=== PATIENT | male | born 1970 ===

== ENCOUNTER 2018-07-17 18:29 | Inpatient (IN) | payer MEDICAID ==
[2018-07-17] MEDS ORDERED: Albuterol-Ipratrop 3 mg / 0.5 (3 ml) UD IH STA ×3 (20:13→22:14)
[2018-07-17] MEDS ORDERED: Sodium Chloride 0.9% 1,000 ML IV STA (20:13)
--- NOTE | 2018-07-17 20:17 | ED PDOC ---
HPI: Skin/Bite Injury Time Seen by Provider: 07/17/18 19:34 Chief Complaint (Nursing): Shortness Of Breath Chief Complaint (Provider): boil History Per: Patient History/Exam Limitations: no limitations Onset/Duration Of Symptoms: Days (4) Current Symptoms Are (Timing): Still Present Additional Complaint(s): 48 y/o male history of HIV (on anti-virals, viral load undetectable, CD4 count 450) presents for evaluation of boil to lower abdomen x 4 days. Patient states symptoms started as small "pimple" which he popped and states since then its been draining and now with redness around area. Patient also reports shortness of breath x 4 days, with dry cough and congestion; no relief provided with his inhaler. Denies fever, nausea/vomiting, chest pain, palpitations, leg pain/swelling. Past Medical History Reviewed: Historical Data, Nursing Documentation, Vital Signs Vital Signs: Last Vital Signs Temp 98.1 F 07/17/18 18:34 Pulse 106 H 07/17/18 18:34 Resp 16 07/17/18 18:34 BP 133/86 07/17/18 18:34 Pulse Ox 96 07/17/18 18:34 - Medical History PMH: HIV - Surgical History Other surgeries: right wrist/forearm surgery - Family History Family History: States: No Known Family Hx - Home Medications Home Medications: Ambulatory Orders Medication Instructions Recorded Bictegrav/Emtricit/Tenofov Ala 1 tab PO DAILY 07/17/18 [Biktarvy 50-200-25 mg Tablet] - Allergies Allergies/Adverse Reactions: Allergies Allergy/AdvReac Type Severity Reaction Status Date / Time Penicillins Allergy RASH Verified 07/17/18 18:43 Review of Systems ROS Statement: Except As Marked, All Systems Reviewed And Found Negative Respiratory: Positive for: Shortness of Breath Skin: Positive for: Lesions (abdomen) Physical Exam - Reviewed Nursing Documentation Reviewed: Yes Vital Signs Reviewed: Yes - Physical Exam Appears: Positive for: Well, Non-toxic, No Acute Distress Head Exam: Positive for: ATRAUMATIC, NORMAL INSPECTION, NORMOCEPHALIC Skin: Positive for: Normal Color Eye Exam: Positive for: Normal appearance ENT: Positive for: Normal ENT Inspection Cardiovascular/Chest: Positive for: Regular Rate, Rhythm Respiratory: Positive for: Decreased Breath Sounds. Negative for: Accessory Muscle Use, Respiratory Distress Gastrointestinal/Abdominal: Positive for: Normal Exam, Bowel Sounds, Soft, Other (open draining lesion lower abdomen with surrounding induration and erythema extending up to abdomen, [id number]) Back: Positive for: Normal Inspection Extremity: Positive for: Normal ROM Neurological/Psych: Positive for: Awake, Alert, Oriented (x3) - Laboratory Results Result Diagrams: 07/17/18 21:06 07/17/18 21:06 - ECG ECG: Positive for: Viewed By Me (reviewed by ED attending) ECG Rhythm: Positive for: Sinus Rhythm O2 Sat by Pulse Oximetry: 96 - Radiology X-Ray: Viewed By Me X-Ray Interpretation: No Acute Disease - Progress ED Course And Treament: -cbc -cmp -lactic acid -blood culture -ekg -cxr -IV NS bolus -IV toradol -duoneb -wound culture IV Vanco dose ordered Case discussed with Dr. Longo for admission; recommends ID consult Disposition - Clinical Impression Clinical Impression: Abdominal wall cellulitis, Bronchospasm - Patient ED Disposition Is Patient to be Admitted: Yes - Disposition Disposition Time: 22:15 Condition: FAIR
[2018-07-17] MEDS ORDERED: Albuterol-Ipratrop 3 mg / 0.5 (3 ml) UD ONE ×2 (20:44→22:34)
[2018-07-17 21:45] LABS: BASO # 0.1 K/uL (0.0-0.2); BASO % 0.6 % (0.0-2.0); EOS # 0.2 K/uL (0.0-0.7); EOS % 1.7 % (0.0-4.0); HEMOGLOBIN 14.1 g/dL (12.0-18.0); LYMPH % 25.1 % (20.0-40.0); MEAN CELL VOLUME 85.6 fl (80.0-94.0); MEAN CORPUSCULAR HEMOGLOBIN 27.8 pg (27.0-31.0); MEAN CORPUSCULAR HGB CONC 32.5 g/dL (33.0-37.0); MEAN PLATELET VOLUME 7.3 fl (7.2-11.7); MONO # 1.4 K/uL (0.0-0.8); MONO % 11.3 % (0.0-10.0); NEUT # 7.4 K/uL (1.8-7.0); NEUT % 61.3 % (50.0-75.0); NRBC % 0.4 % (0.0-0.0); RBC 5.09 Mil/uL (4.40-5.90); RED CELL DISTRIBUTION WIDTH 15.4 % (11.5-14.5)
[2018-07-17 21:57] LABS: ALB/GLOB RATIO 1.1 (1.0-2.1); ALT/SGPT 45 U/L (21-72); AST/SGOT 35 U/L (17-59); BLOOD UREA NITROGEN 10 mg/dl (9-20); CALCIUM 9.2 mg/dL (8.4-10.2); GFR NON-AFRICAN AMERICAN 50
[2018-07-17] MEDS ORDERED: Vancomycin 1 g Inj ONE (22:34)
[2018-07-18] MEDS ORDERED: Piperacillin/Tazobact 3.375 GM in Sodium Chloride 0.9% 100 ML IVPB SCH (04:00)
[2018-07-18 07:29] LABS: HEMOGLOBIN 15.1 g/dL (12.0-18.0); MEAN CELL VOLUME 85.7 fl (80.0-94.0); MEAN CORPUSCULAR HEMOGLOBIN 27.9 pg (27.0-31.0); MEAN CORPUSCULAR HGB CONC 32.5 g/dL (33.0-37.0); RBC 5.42 Mil/uL (4.40-5.90); RED CELL DISTRIBUTION WIDTH 15.2 % (11.5-14.5); WHITE BLOOD COUNT 13.1 K/uL (4.8-10.8)
[2018-07-18 07:43] LABS: ALBUMIN 4.1 g/dL (3.5-5.0); ALT/SGPT 40 U/L (21-72); AST/SGOT 25 U/L (17-59); BLOOD UREA NITROGEN 12 mg/dl (9-20); CALCIUM 9.6 mg/dL (8.4-10.2); GFR NON-AFRICAN AMERICAN > 60; HDL CHOLESTEROL 25 MG/DL (30-70)
[2018-07-18 07:51] LABS: LDL CHOLESTEROL 115 mg/dL (0-129)
--- NOTE | 2018-07-18 10:50 | RAD ---
Date of service: 07/17/2018 HISTORY: Shortness of breath COMPARISON: None TECHNIQUE: Chest PA and lateral FINDINGS: LINES AND TUBES: None. LUNG AND PLEURA: The lungs are well inflated and clear. There is mild pulmonary venous congestion. No pleural effusion or pneumothorax. HEART AND MEDIASTINUM: The heart is not enlarged. No aortic atherosclerotic calcifications present. The hilar and mediastinal contours are within normal limits. SKELETAL STRUCTURES: The bony structures are within normal limits for the patient's age. VISUALIZED UPPER ABDOMEN: Normal. OTHER FINDINGS: None. IMPRESSION: No active pulmonary disease.
--- NOTE | 2018-07-18 10:58 | CP.PCM.CON ---
History of Present Illness - History of Present Illness History of Present Illness: Infectious disease consultation Asked to see this patient at the request of Dr. Longo for cellulitis of the lower abdominal region. HPI Patient is a 48-year-old male with past medical history of HIV who is well controlled on antiretrovirals( Biktarvy) with undetectable viral load and he states his last CD4 was 450. He states he follows up with his doctor in [place]. Patient presents to hospital for evaluation of a boil that he had developed in his lower abdomen about 4 days ago and apparently he popped the boil himself and he started to have oozing of blood from it and developed some redness in the surrounding region and hence he decided to come to ER and to be further evaluated. He denies any fever or chills, denies any nausea or vomiting, denies any purulent discharge from the boil and states the only discharge has been bloody, denies any abdominal pain, denies any diarrhea, denies any dysuria, denies any cough or shortness of breath, denies any chest pain. Review of Systems - Review of Systems Review of Systems: Review of systems had a boil in lower abdomen that he popped and has been draining blood from it and surrounding redness Patient denies any headaches, denies any cough, denies any shortness of breath, denies any chest pain, denies any nausea vomiting, denies any abdominal pain, denies any diarrhea, denies any dysuria Denies any recent travel Denies any sick contacts Denies any animal contact Past Patient History - Past Medical History & Family History Past Medical History?: Yes - Past Social History Smoking Status: Light Smoker < 10 Cigarettes Daily - CARDIAC Hx Cardiac Disorders: No - PULMONARY Hx Respiratory Disorders: Yes Hx Asthma: Yes - NEUROLOGICAL Hx Neurological Disorder: No - HEENT Hx HEENT Problems: No - RENAL Hx Chronic Kidney Disease: No - ENDOCRINE/METABOLIC Hx Endocrine Disorders: No - HEMATOLOGICAL/ONCOLOGICAL Hx Blood Disorders: Yes Hx Human Immunodeficiency Virus (HIV): Yes - INTEGUMENTARY Hx Dermatological Problems: No - MUSCULOSKELETAL/RHEUMATOLOGICAL Hx Musculoskeletal Disorders: No Hx Falls: No - GASTROINTESTINAL Hx Gastrointestinal Disorders: No - GENITOURINARY/GYNECOLOGICAL Hx Genitourinary Disorders: No - PSYCHIATRIC Hx Psychophysiologic Disorder: No Hx Substance Use: No - SURGICAL HISTORY Hx Surgeries: Yes Hx Orthopedic Surgery: Yes (right wrist / arm fx) - ANESTHESIA Hx Anesthesia: Yes Hx Anesthesia Reactions: No Hx Malignant Hyperthermia: No Has any member of the family had a problem w/ anesthesia?: No Meds Allergies/Adverse Reactions: Allergies Allergy/AdvReac Type Severity Reaction Status Date / Time Penicillins Allergy RASH Verified 07/17/18 18:43 - Medications Medications: Current Medications Acetaminophen (Tylenol 325mg Tab) 650 mg PO Q4 PRN PRN Reason: Pain, Mild (1-3) Home Med (Bictegrav/Emtricit/Tenofov Ala [Biktarvy 50-200-25 Mg Tablet]) 1 tab PO DAILY JT Vancomycin HCl 1 gm/ Sodium (Chloride) 250 mls @ 166.667 mls/hr IVPB Q12H JT; Protocol Last Admin: 07/18/18 08:55 Dose: 166.667 mls/hr Ketorolac Tromethamine (Toradol) 15 mg IVP Q6 PRN PRN Reason: Pain, moderate (4-7) Ketorolac Tromethamine (Toradol) 30 mg IVP Q6 PRN PRN Reason: Pain, severe (8-10) Last Admin: 07/18/18 08:53 Dose: 30 mg Physical Exam - Constitutional Appears: No Acute Distress - Head Exam Head Exam: ATRAUMATIC - Eye Exam Eye Exam: EOMI, PERRL - ENT Exam ENT Exam: Normal Oropharynx - Neck Exam Neck exam: Positive for: Full Rom - Respiratory Exam Respiratory Exam: Clear to Auscultation Bilateral, NORMAL BREATHING PATTERN - Cardiovascular Exam Cardiovascular Exam: RRR, +S1, +S2 - GI/Abdominal Exam GI & Abdominal Exam: Normal Bowel Sounds, Soft Additional comments: ND, mid lower abdominal region with small round opening where he had the boil draing minimal blood, + surrounding erythema, no fluctuation no tenderness - Extremities Exam Extremities exam: Positive for: normal inspection - Neurological Exam Neurological exam: Alert, Oriented x3 Results - Vital Signs Recent Vital Signs: Last Vital Signs Temp 97.5 F L 07/18/18 07:36 Pulse 65 07/18/18 07:36 Resp 19 07/18/18 07:36 BP 135/80 07/18/18 07:36 Pulse Ox 95 07/18/18 07:36 - Labs Result Diagrams: 07/18/18 06:55 07/18/18 06:55 Labs: Laboratory Results - last 24 hr 07/17/18 07/17/18 07/17/18 21:06 21:06 21:06 WBC 12.0 H RBC 5.09 Hgb 14.1 Hct 43.6 MCV 85.6 MCH 27.8 MCHC 32.5 L RDW 15.4 H Plt Count 352 MPV 7.3 Neut % (Auto) 61.3 Lymph % (Auto) 25.1 [place] % (Auto) 11.3 H Eos % (Auto) 1.7 Baso % (Auto) 0.6 Neut # (Auto) 7.4 H Lymph # (Auto) 3.0 [place] # (Auto) 1.4 H Eos # (Auto) 0.2 Baso # (Auto) 0.1 Sodium 139 Potassium 4.1 Chloride 104 Carbon Dioxide 27 Anion Gap 12 BUN 10 Creatinine 1.5 Est GFR ( Amer) > 60 Est GFR (Non-Af Amer) 50 Random Glucose 102 Lactic Acid 1.2 Calcium 9.2 Total Bilirubin 0.4 AST 35 ALT 45 Alkaline Phosphatase 76 Troponin I < 0.0120 NT-Pro-B Natriuret Pep 30.0 Total Protein 7.6 Albumin 4.0 Globulin 3.5 Albumin/Globulin Ratio 1.1 Triglycerides Cholesterol LDL Cholesterol Direct HDL Cholesterol Thyroxine (T4) TSH 3rd Generation 07/18/18 07/18/18 06:55 06:55 WBC 13.1 H RBC 5.42 Hgb 15.1 Hct 46.5 MCV 85.7 MCH 27.9 MCHC 32.5 L RDW 15.2 H Plt Count 347 MPV Neut % (Auto) Lymph % (Auto) [place] % (Auto) Eos % (Auto) Baso % (Auto) Neut # (Auto) Lymph # (Auto) [place] # (Auto) Eos # (Auto) Baso # (Auto) Sodium 139 Potassium 4.3 Chloride 108 H Carbon Dioxide 21 L Anion Gap 14 BUN 12 Creatinine 1.2 Est GFR ( Amer) > 60 Est GFR (Non-Af Amer) > 60 Random Glucose 165 H Lactic Acid Calcium 9.6 Total Bilirubin 0.5 AST 25 ALT 40 Alkaline Phosphatase 82 Troponin I NT-Pro-B Natriuret Pep Total Protein 7.9 Albumin 4.1 Globulin 3.9 Albumin/Globulin Ratio 1.0 Triglycerides 95 Cholesterol 182 LDL Cholesterol Direct 115 HDL Cholesterol 25 L Thyroxine (T4) 8.68 TSH 3rd Generation 1.24 Accession No. : [id number] Patient Name / ID : GOLD BLAKE A / [id number] Exam Date : 07/17/2018 21:05:23 ( Approved ) Study Comment : Sex / Age : M / 48Y Creator : Camila Blue MD Dictator : Camila Blue MD Parachute Taper : Freelance Operator : Camila Blue MD Approver2 : Report Date : 07/18/2018 10:47:28 My Comment : Date of service: 07/17/2018 HISTORY: Shortness of breath COMPARISON: None TECHNIQUE: Chest PA and lateral FINDINGS: LINES AND TUBES: None. LUNG AND PLEURA: The lungs are well inflated and clear. There is mild pulmonary venous congestion. No pleural effusion or pneumothorax. HEART AND MEDIASTINUM: The heart is not enlarged. No aortic atherosclerotic calcifications present. The hilar and mediastinal contours are within normal limits. SKELETAL STRUCTURES: The bony structures are within normal limits for the patient's age. VISUALIZED UPPER ABDOMEN: Normal. OTHER FINDINGS: None. IMPRESSION: No active pulmonary disease. Assessment & Plan (1) Abdominal wall cellulitis Status: Acute (2) HIV (human immunodeficiency virus infection) Status: Acute - Assessment and Plan (Free Text) Assessment: Assessment and plan 48-year-old male with past medical history of HIV well-controlled who is admitted to hospital for evaluation of lower abdominal cellulitis after popping a small boil that was present there. Afebrile Minimal leukocytosis Wound culturepending Plan Advised to continue with IV vancomycin to cover for skin pathogens and treat the lower abdominal wall cellulitis. Keep Vanco trough less than 15. Follow-up wound culture results. Check blood culture x1. Advised the patient to continue his home HIV medication ( Biktarvy). All labs and imaging and chart notes were reviewed. All above discussed with patient and he agrees with above plan of care. Thank you for allowing me to take part in the care of this patient.
--- NOTE | 2018-07-18 11:16 | CARD ---
APPROVED REPORT Date of service: 07/17/2018 EKG Measurement Heart [id number] <Conclusion> Normal sinus rhythm Normal ECG
--- NOTE | 2018-07-18 14:24 | CP.PCM.HP ---
History of Present Illness - History of Present Illness History of Present Illness: CC: Abdominal boil. 48 y/o M, with Hx HIV on Biktarvy, Asthma, PNA, came to ER [facility] on 07/[facility]18 for evaluation of abdominal pain, suprapubic site 2nd to a boil that appeared in his lower abdomen x 4 days [employer] SAL[employer], and after he popped start draining oozing blood associated to surrounding redness/swelling in the area. Initially, lower abdominal wound area was described as constant, dull, severe intensity 9:10 with no relief. Worsening symptoms: c/o of SOB x 1 week with COULTER, associated to productive, cough and scant yellowish phlegms, non bloody, Pt using handheld inhalers at home with no relief. Aggravated factor: Exercise, movements. Pt denied: Fever, chills, n/v/d, abdominal pain (other than wound area), urinar y symptoms, CP, palpitations, sick contact, recent travel out of [place]. CXR: No active pulmonary disease. EKG: Normal sinus rhythm. Present on Admission - Present on Admission Any Indicators Present on Admission: No Review of Systems - Constitutional Constitutional: Other (negative) - EENT Eyes: Other (negative) Ears: Other (negative) Nose/Mouth/Throat: Other (negative) - Cardiovascular Cardiovascular: Other (negative) - Respiratory Respiratory: Cough, Dyspnea, Dyspnea on Exertion, Excessive Mucous Production, Change in Mucous Color - Gastrointestinal Gastrointestinal: Abdominal Pain (wound area) - Genitourinary Genitourinary: Other (negati) - Musculoskeletal Musculoskeletal: Other (negative) - Integumentary Integumentary: Wounds - Neurological Neurological: Other (negative) - Psychiatric Psychiatric: Other (negative) - Endocrine Endocrine: Other (negative) - Hematologic/Lymphatic Hematologic: Other (negative) Past Patient History - Past Medical History & Family History Past Medical History?: Yes Pertinent Family History: Unknown - Past Social History Smoking Status: Light Smoker < 10 Cigarettes Daily Alcohol: None Drugs: Denies Home Situation {Lives}: Alone - CARDIAC Hx Cardiac Disorders: No - PULMONARY Hx Respiratory Disorders: Yes Hx Asthma: Yes - NEUROLOGICAL Hx Neurological Disorder: No - HEENT Hx HEENT Problems: No - RENAL Hx Chronic Kidney Disease: No - ENDOCRINE/METABOLIC Hx Endocrine Disorders: No - HEMATOLOGICAL/ONCOLOGICAL Hx Blood Disorders: Yes Hx Human Immunodeficiency Virus (HIV): Yes - INTEGUMENTARY Hx Dermatological Problems: No - MUSCULOSKELETAL/RHEUMATOLOGICAL Hx Musculoskeletal Disorders: No Hx Falls: No - GASTROINTESTINAL Hx Gastrointestinal Disorders: No - GENITOURINARY/GYNECOLOGICAL Hx Genitourinary Disorders: No - PSYCHIATRIC Hx Psychophysiologic Disorder: No Hx Substance Use: No - SURGICAL HISTORY Hx Surgeries: Yes Hx Orthopedic Surgery: Yes (right wrist / arm fx) - ANESTHESIA Hx Anesthesia: Yes Hx Anesthesia Reactions: No Hx Malignant Hyperthermia: No Has any member of the family had a problem w/ anesthesia?: No Meds Allergies/Adverse Reactions: Allergies Allergy/AdvReac Type Severity Reaction Status Date / Time Penicillins Allergy RASH Verified 07/17/18 18:43 Physical Exam - Constitutional Appears: No Acute Distress - Head Exam Head Exam: NORMAL INSPECTION - Eye Exam Eye Exam: PERRL - ENT Exam ENT Exam: Normal Exam - Neck Exam Neck exam: Positive for: Normal Inspection - Respiratory Exam Respiratory Exam: Decreased Breath Sounds - Cardiovascular Exam Cardiovascular Exam: REGULAR RHYTHM - GI/Abdominal Exam GI & Abdominal Exam: Normal Bowel Sounds, Soft Additional comments: Open draining wound lower abdomen with surrounding induration and erythema around the area - Extremities Exam Extremities exam: Positive for: normal inspection - Back Exam Back exam: NORMAL INSPECTION - Neurological Exam Neurological exam: Alert, Oriented x3 Additional comments: No motor/sensory deficit. - Psychiatric Exam Psychiatric exam: Normal Mood - Skin Skin Exam: Erythema, Warm Results - Vital Signs Recent Vital Signs: Last Vital Signs Temp 97.5 F L 07/18/18 09:00 Pulse 65 07/18/18 09:00 Resp 19 07/18/18 09:00 BP 135/80 07/18/18 09:00 Pulse Ox 95 07/18/18 09:00 reviewed J.PPaz - Labs Result Diagrams: 07/19/18 06:05 07/19/18 06:05 Labs: Laboratory Results - last 24 hr 07/17/18 07/17/18 07/17/18 21:06 21:06 21:06 WBC 12.0 H RBC 5.09 Hgb 14.1 Hct 43.6 MCV 85.6 MCH 27.8 MCHC 32.5 L RDW 15.4 H Plt Count 352 MPV 7.3 Neut % (Auto) 61.3 Lymph % (Auto) 25.1 [place] % (Auto) 11.3 H Eos % (Auto) 1.7 Baso % (Auto) 0.6 Neut # (Auto) 7.4 H Lymph # (Auto) 3.0 [place] # (Auto) 1.4 H Eos # (Auto) 0.2 Baso # (Auto) 0.1 Sodium 139 Potassium 4.1 Chloride 104 Carbon Dioxide 27 Anion Gap 12 BUN 10 Creatinine 1.5 Est GFR ( Amer) > 60 Est GFR (Non-Af Amer) 50 Random Glucose 102 Lactic Acid 1.2 Calcium 9.2 Total Bilirubin 0.4 AST 35 ALT 45 Alkaline Phosphatase 76 Troponin I < 0.0120 NT-Pro-B Natriuret Pep 30.0 Total Protein 7.6 Albumin 4.0 Globulin 3.5 Albumin/Globulin Ratio 1.1 Triglycerides Cholesterol LDL Cholesterol Direct HDL Cholesterol Thyroxine (T4) TSH 3rd Generation 07/18/18 07/18/18 06:55 06:55 WBC 13.1 H RBC 5.42 Hgb 15.1 Hct 46.5 MCV 85.7 MCH 27.9 MCHC 32.5 L RDW 15.2 H Plt Count 347 MPV Neut % (Auto) Lymph % (Auto) [place] % (Auto) Eos % (Auto) Baso % (Auto) Neut # (Auto) Lymph # (Auto) [place] # (Auto) Eos # (Auto) Baso # (Auto) Sodium 139 Potassium 4.3 Chloride 108 H Carbon Dioxide 21 L Anion Gap 14 BUN 12 Creatinine 1.2 Est GFR ( Amer) > 60 Est GFR (Non-Af Amer) > 60 Random Glucose 165 H Lactic Acid Calcium 9.6 Total Bilirubin 0.5 AST 25 ALT 40 Alkaline Phosphatase 82 Troponin I NT-Pro-B Natriuret Pep Total Protein 7.9 Albumin 4.1 Globulin 3.9 Albumin/Globulin Ratio 1.0 Triglycerides 95 Cholesterol 182 LDL Cholesterol Direct 115 HDL Cholesterol 25 L Thyroxine (T4) 8.68 TSH 3rd Generation 1.24 reviewed J.P. - EKG Data EKG comments: reviewed J.P. - Imaging and Cardiology Chest x-ray Status: Report reviewed by me (JPazP.) Assessment & Plan (1) Abdominal wall cellulitis Status: Acute (2) HIV (human immunodeficiency virus infection) Status: Acute (3) Asthma Status: Chronic Priority: Medium - Assessment and Plan (Free Text) Plan: F/U HIV test, Blood and wound C-S, continue O2 NC, Toradol, [place], Ol[place], ID consult appreciated.
[2018-07-18] MEDS: Patient's Own Med (Bictegrav/Emtricit/Tenofov Ala [Biktarvy 50-200-25 Mg Tablet] 1 TAB) PO SCH (16:49)
[2018-07-19 06:20] LABS: HEMOGLOBIN 13.9 g/dL (12.0-18.0); MEAN CELL VOLUME 86.7 fl (80.0-94.0); MEAN CORPUSCULAR HEMOGLOBIN 27.8 pg (27.0-31.0); MEAN CORPUSCULAR HGB CONC 32.1 g/dL (33.0-37.0); RED CELL DISTRIBUTION WIDTH 15.4 % (11.5-14.5); WHITE BLOOD COUNT 15.6 K/uL (4.8-10.8)
[2018-07-19 06:27] LABS: BLOOD UREA NITROGEN 15 mg/dl (9-20); CALCIUM 8.9 mg/dL (8.4-10.2); GFR NON-AFRICAN AMERICAN 59
[2018-07-19] MEDS: Patient's Own Med (Bictegrav/Emtricit/Tenofov Ala [Biktarvy 50-200-25 Mg Tablet] 1 TAB) PO SCH (08:44)
--- NOTE | 2018-07-19 10:36 | CP.PCM.PN ---
Subjective - Date & Time of Evaluation Date of Evaluation: 07/19/18 Time of Evaluation: 10:36 - Subjective Subjective: ID Note- Pt. seen and examined today. denies any fever or chills. still has some erythema and bloody discharge from the lower abd boil sitre. Objective - Vital Signs/Intake and Output Vital Signs (last 24 hours): Temp Pulse Resp BP Pulse Ox 97.8 F 64 20 102/64 95 07/19/18 07:41 07/19/18 07:41 07/19/18 07:41 07/19/18 07:41 07/19/18 07:41 - Medications Medications: Current Medications Acetaminophen (Tylenol 325mg Tab) 650 mg PO Q4 PRN PRN Reason: Pain, Mild (1-3) Home Med (Bictegrav/Emtricit/Tenofov Ala [Biktarvy 50-200-25 Mg Tablet]) 1 tab PO DAILY JT Last Admin: 07/19/18 08:44 Dose: 1 tab Vancomycin HCl 1 gm/ Sodium (Chloride) 250 mls @ 166.667 mls/hr IVPB Q12H JT; Protocol Last Admin: 07/19/18 08:44 Dose: 166.667 mls/hr Ketorolac Tromethamine (Toradol) 15 mg IVP Q6 PRN PRN Reason: Pain, moderate (4-7) Ketorolac Tromethamine (Toradol) 30 mg IVP Q6 PRN PRN Reason: Pain, severe (8-10) Last Admin: 07/18/18 08:53 Dose: 30 mg - Labs Labs: - Additional Findings Additional findings: - Constitutional Appears: No Acute Distress - Head Exam Head Exam: ATRAUMATIC - Eye Exam Eye Exam: EOMI, PERRL - ENT Exam ENT Exam: Normal Oropharynx - Neck Exam Neck exam: Positive for: Full Rom - Respiratory Exam Respiratory Exam: Clear to Auscultation Bilateral, NORMAL BREATHING PATTERN - Cardiovascular Exam Cardiovascular Exam: RRR, +S1, +S2 - GI/Abdominal Exam GI & Abdominal Exam: Normal Bowel Sounds, Soft Additional comments: ND, mid lower abdominal region with small round opening where he had the boil draining minimal blood, + surrounding erythema, no fluctuation no tenderness - Extremities Exam Extremities exam: Positive for: normal inspection - Neurological Exam Neurological exam: Alert, Oriented x 3 Laboratory Results - last 72 hr 07/17/18 07/17/18 07/17/18 21:06 21:06 21:06 WBC 12.0 H RBC 5.09 Hgb 14.1 Hct 43.6 MCV 85.6 MCH 27.8 MCHC 32.5 L RDW 15.4 H Plt Count 352 MPV 7.3 Neut % (Auto) 61.3 Lymph % (Auto) 25.1 [place] % (Auto) 11.3 H Eos % (Auto) 1.7 Baso % (Auto) 0.6 Neut # (Auto) 7.4 H Lymph # (Auto) 3.0 [place] # (Auto) 1.4 H Eos # (Auto) 0.2 Baso # (Auto) 0.1 Sodium 139 Potassium 4.1 Chloride 104 Carbon Dioxide 27 Anion Gap 12 BUN 10 Creatinine 1.5 Est GFR ( Amer) > 60 Est GFR (Non-Af Amer) 50 Random Glucose 102 Lactic Acid 1.2 Calcium 9.2 Total Bilirubin 0.4 AST 35 ALT 45 Alkaline Phosphatase 76 Troponin I < 0.0120 NT-Pro-B Natriuret Pep 30.0 Total Protein 7.6 Albumin 4.0 Globulin 3.5 Albumin/Globulin Ratio 1.1 Triglycerides Cholesterol LDL Cholesterol Direct HDL Cholesterol Thyroxine (T4) TSH 3rd Generation Vancomycin Trough 07/18/18 07/18/18 07/19/18 06:55 06:55 06:05 WBC 13.1 H 15.6 H RBC 5.42 5.00 Hgb 15.1 13.9 Hct 46.5 43.3 MCV 85.7 86.7 MCH 27.9 27.8 MCHC 32.5 L 32.1 L RDW 15.2 H 15.4 H Plt Count 347 338 MPV Neut % (Auto) Lymph % (Auto) [place] % (Auto) Eos % (Auto) Baso % (Auto) Neut # (Auto) Lymph # (Auto) [place] # (Auto) Eos # (Auto) Baso # (Auto) Sodium 139 Potassium 4.3 Chloride 108 H Carbon Dioxide 21 L Anion Gap 14 BUN 12 Creatinine 1.2 Est GFR ( Amer) > 60 Est GFR (Non-Af Amer) > 60 Random Glucose 165 H Lactic Acid Calcium 9.6 Total Bilirubin 0.5 AST 25 ALT 40 Alkaline Phosphatase 82 Troponin I NT-Pro-B Natriuret Pep Total Protein 7.9 Albumin 4.1 Globulin 3.9 Albumin/Globulin Ratio 1.0 Triglycerides 95 Cholesterol 182 LDL Cholesterol Direct 115 HDL Cholesterol 25 L Thyroxine (T4) 8.68 TSH 3rd Generation 1.24 Vancomycin Trough 07/19/18 07/19/18 06:05 06:05 WBC RBC Hgb Hct MCV MCH MCHC RDW Plt Count MPV Neut % (Auto) Lymph % (Auto) [place] % (Auto) Eos % (Auto) Baso % (Auto) Neut # (Auto) Lymph # (Auto) [place] # (Auto) Eos # (Auto) Baso # (Auto) Sodium 141 Potassium 4.1 Chloride 109 H Carbon Dioxide 25 Anion Gap 11 BUN 15 Creatinine 1.3 Est GFR ( Amer) > 60 Est GFR (Non-Af Amer) 59 Random Glucose 102 Lactic Acid Calcium 8.9 Total Bilirubin AST ALT Alkaline Phosphatase Troponin I NT-Pro-B Natriuret Pep Total Protein Albumin Globulin Albumin/Globulin Ratio Triglycerides Cholesterol LDL Cholesterol Direct HDL Cholesterol Thyroxine (T4) TSH 3rd Generation Vancomycin Trough 6.6 Microbiology 07/17/18 21:06 Abdomen Gram Stain - Final 07/17/18 21:06 Abdomen Wound Culture - Preliminary Staphylococcus Aureus Assessment and Plan (1) Abdominal wall cellulitis Status: Acute (2) HIV (human immunodeficiency virus infection) Status: Acute - Assessment and Plan (Free Text) Assessment: Assessment and plan 48-year-old male with past medical history of HIV well-controlled who is admitted to hospital for evaluation of lower abdominal cellulitis after popping a small boil that was present there. Afebrile leukocytosis slightly higher today Wound culturestaph aureus Plan await sensitivity of the staph aureus. continue with IV vanco day #2. keep trough <15. Advised the patient to continue his home HIV medication ( Biktarvy).
--- NOTE | 2018-07-19 17:08 | CP.PCM.PN ---
Subjective - Date & Time of Evaluation Date of Evaluation: 07/19/18 Time of Evaluation: 14:00 - Subjective Subjective: F/U Abdominal wall Cellilitis N/C of pain lower abdomen, no SOB Objective - Vital Signs/Intake and Output Vital Signs (last 24 hours): Temp Pulse Resp BP Pulse Ox 97.9 F 64 18 131/80 97 07/19/18 16:47 07/19/18 16:47 07/19/18 16:47 07/19/18 16:47 07/19/18 16:47 - Medications Medications: Current Medications Acetaminophen (Tylenol 325mg Tab) 650 mg PO Q4 PRN PRN Reason: Pain, Mild (1-3) Home Med (Bictegrav/Emtricit/Tenofov Ala [Biktarvy 50-200-25 Mg Tablet]) 1 tab PO DAILY [facility] Last Admin: 07/19/18 08:44 Dose: 1 tab Vancomycin HCl 1,500 mg/ (Sodium Chloride) 500 mls @ 250 mls/hr IVPB Q12H JT; Protocol Last Admin: 07/19/18 17:08 Dose: 250 mls/hr Ketorolac Tromethamine (Toradol) 15 mg IVP Q6 PRN PRN Reason: Pain, moderate (4-7) Ketorolac Tromethamine (Toradol) 30 mg IVP Q6 PRN PRN Reason: Pain, severe (8-10) Last Admin: 07/18/18 08:53 Dose: 30 mg - Labs Labs: 07/19/18 06:05 07/19/18 06:05 - Constitutional Appears: No Acute Distress - Head Exam Head Exam: NORMAL INSPECTION - Eye Exam Eye Exam: PERRL - ENT Exam ENT Exam: Normal Exam - Neck Exam Neck Exam: Normal Inspection - Respiratory Exam Respiratory Exam: NORMAL BREATHING PATTERN - Cardiovascular Exam Cardiovascular Exam: REGULAR RHYTHM - GI/Abdominal Exam GI & Abdominal Exam: Soft, Normal Bowel Sounds Additional comments: Lower abdomen with small opening with serous drainage, redness and erythema around the area - Extremities Exam Extremities Exam: Normal Inspection - Back Exam Back Exam: NORMAL INSPECTION - Neurological Exam Neurological Exam: Alert, Oriented x3. absent: Motor Sensory Deficit - Psychiatric Exam Psychiatric exam: Normal Mood - Skin Skin Exam: Erythema, Warm Assessment and Plan (1) Abdominal wall cellulitis Assessment & Plan: MRSA Status: Acute (2) HIV (human immunodeficiency virus infection) Status: Acute (3) Asthma Status: Chronic - Assessment and Plan (Free Text) Plan: U C-S MRSA, continue Vanco, Toradol and rest of Tx
[2018-07-20] MEDS ORDERED: Benzocaine/Menthol (Cepacol) Lozenge PO PRN (04:54)
[2018-07-20] MEDS ORDERED: Benzocaine/Menthol (Cepacol) Lozenge PO STA (04:55)
[2018-07-20] MEDS ORDERED: guaiFENesin 100 mg/5 ml Syrup UD PO STA (04:55)
[2018-07-20 07:51] LABS: BASO # 0.1 K/uL (0.0-0.2); BASO % 0.9 % (0.0-2.0); EOS # 0.3 K/uL (0.0-0.7); EOS % 2.5 % (0.0-4.0); HEMOGLOBIN 14.1 g/dL (12.0-18.0); LYMPH # 3.1 K/uL (1.0-4.3); LYMPH % 30.3 % (20.0-40.0); MEAN CELL VOLUME 85.6 fl (80.0-94.0); MEAN CORPUSCULAR HEMOGLOBIN 28.1 pg (27.0-31.0); MEAN CORPUSCULAR HGB CONC 32.8 g/dL (33.0-37.0); MEAN PLATELET VOLUME 7.4 fl (7.2-11.7); MONO # 0.7 K/uL (0.0-0.8); MONO % 7.1 % (0.0-10.0); NEUT % 59.2 % (50.0-75.0); NRBC % 0.1 % (0.0-0.0); RBC 5.02 Mil/uL (4.40-5.90); RED CELL DISTRIBUTION WIDTH 15.4 % (11.5-14.5); WHITE BLOOD COUNT 10.2 K/uL (4.8-10.8)
[2018-07-20] MEDS: Patient's Own Med (Bictegrav/Emtricit/Tenofov Ala [Biktarvy 50-200-25 Mg Tablet] 1 TAB) PO SCH (09:48)
[2018-07-20 11:43] LABS: % CD4 (T HELPER CELL) 5 Percent (30-61); % CD8 (SUPPRESSOR T CELL) 65 Percent (12-42); ABSOLUTE CD4 CELLS 105 Cells/mcL (490-1740); ABSOLUTE CD8 CELLS 1255 Cells/mcL (180-1170); ABSOLUTE LYMPHOCYTES 1933 Cells/mcL (850-3900); HELPER/SUPPRESSOR RATIO 0.08 Ratio (0.86-5.00)
--- NOTE | 2018-07-20 17:28 | CP.PCM.PN ---
Subjective - Date & Time of Evaluation Date of Evaluation: 07/20/18 Time of Evaluation: 13:40 - Subjective Subjective: F/U Cellulitis abdominal wall minimal pain suprapubic in the area of cellulitis Objective - Vital Signs/Intake and Output Vital Signs (last 24 hours): Temp Pulse Resp BP Pulse Ox 98.3 F 78 18 122/75 95 07/20/18 16:42 07/20/18 16:42 07/20/18 16:42 07/20/18 16:42 07/20/18 16:42 - Medications Medications: Current Medications Acetaminophen (Tylenol 325mg Tab) 650 mg PO Q4 PRN PRN Reason: Pain, Mild (1-3) Benzocaine/Menthol (Cepacol Sore Throat) 1 neha PO Q3 PRN PRN Reason: Sore Throat Home Med (Bictegrav/Emtricit/Tenofov Ala [Biktarvy 50-200-25 Mg Tablet]) 1 tab PO DAILY [facility] Last Admin: 07/20/18 09:48 Dose: 1 tab Vancomycin HCl 1,500 mg/ (Sodium Chloride) 500 mls @ 250 mls/hr IVPB Q12H JT; Protocol Last Admin: 07/20/18 04:39 Dose: 250 mls/hr Ketorolac Tromethamine (Toradol) 15 mg IVP Q6 PRN PRN Reason: Pain, moderate (4-7) Last Admin: 07/19/18 18:52 Dose: 15 mg Ketorolac Tromethamine (Toradol) 30 mg IVP Q6 PRN PRN Reason: Pain, severe (8-10) Last Admin: 07/20/18 09:47 Dose: 30 mg - Labs Labs: 07/20/18 06:00 07/19/18 06:05 - Constitutional Appears: No Acute Distress - Head Exam Head Exam: NORMAL INSPECTION - Eye Exam Eye Exam: PERRL - ENT Exam ENT Exam: Normal Exam - Neck Exam Neck Exam: Normal Inspection - Respiratory Exam Respiratory Exam: Decreased Breath Sounds - Cardiovascular Exam Cardiovascular Exam: REGULAR RHYTHM - GI/Abdominal Exam GI & Abdominal Exam: Soft, Normal Bowel Sounds Additional comments: Lower abdomen area with small amount of serous drainage, redness on surrounded area, dressing in place. - Extremities Exam Extremities Exam: Normal Inspection - Back Exam Back Exam: NORMAL INSPECTION - Neurological Exam Neurological Exam: Alert, Oriented x3. absent: Motor Sensory Deficit - Psychiatric Exam Psychiatric exam: Normal Mood - Skin Skin Exam: Erythema, Warm Assessment and Plan (1) Abdominal wall cellulitis Assessment & Plan: MRSA Status: Acute (2) HIV (human immunodeficiency virus infection) Status: Acute (3) Asthma Status: Chronic - Assessment and Plan (Free Text) Plan: continue Vanco and rest of Tx, f/u ID
[2018-07-21 03:35] LABS: HEMOGLOBIN 14.3 g/dL (12.0-18.0); MEAN CELL VOLUME 84.9 fl (80.0-94.0); MEAN CORPUSCULAR HEMOGLOBIN 28.3 pg (27.0-31.0); MEAN CORPUSCULAR HGB CONC 33.3 g/dL (33.0-37.0); RBC 5.07 Mil/uL (4.40-5.90); RED CELL DISTRIBUTION WIDTH 15.5 % (11.5-14.5); WHITE BLOOD COUNT 10.2 K/uL (4.8-10.8)
[2018-07-21 03:59] LABS: ALBUMIN 3.5 g/dL (3.5-5.0); ALT/SGPT 54 U/L (21-72); AST/SGOT 27 U/L (17-59); BLOOD UREA NITROGEN 12 mg/dl (9-20); CALCIUM 8.9 mg/dL (8.4-10.2); GFR NON-AFRICAN AMERICAN > 60
[2018-07-21] MEDS: Patient's Own Med (Bictegrav/Emtricit/Tenofov Ala [Biktarvy 50-200-25 Mg Tablet] 1 TAB) PO SCH (09:36)
--- NOTE | 2018-07-21 11:41 | CP.PCM.PN ---
Subjective - Date & Time of Evaluation Date of Evaluation: 07/21/18 Time of Evaluation: 11:40 - Subjective Subjective: ID Note- Pt. seen and examined today . pt. denies any fever or chills. He states he feels better and has less drainage from his abdominal wound. Objective - Vital Signs/Intake and Output Vital Signs (last 24 hours): Temp Pulse Resp BP Pulse Ox 97.6 F 61 20 130/84 96 07/21/18 08:44 07/21/18 08:44 07/21/18 08:44 07/21/18 08:44 07/21/18 08:44 - Medications Medications: Current Medications Acetaminophen (Tylenol 325mg Tab) 650 mg PO Q4 PRN PRN Reason: Pain, Mild (1-3) Benzocaine/Menthol (Cepacol Sore Throat) 1 neha PO Q3 PRN PRN Reason: Sore Throat Home Med (Bictegrav/Emtricit/Tenofov Ala [Biktarvy 50-200-25 Mg Tablet]) 1 tab PO DAILY JT Last Admin: 07/21/18 09:36 Dose: 1 tab Vancomycin HCl 1,500 mg/ (Sodium Chloride) 500 mls @ 250 mls/hr IVPB Q12H JT; Protocol Last Admin: 07/21/18 03:49 Dose: 250 mls/hr Ketorolac Tromethamine (Toradol) 15 mg IVP Q6 PRN PRN Reason: Pain, moderate (4-7) Last Admin: 07/21/18 09:35 Dose: 15 mg Ketorolac Tromethamine (Toradol) 30 mg IVP Q6 PRN PRN Reason: Pain, severe (8-10) Last Admin: 07/20/18 17:43 Dose: 30 mg - Labs Labs: - Additional Findings Additional findings: - Constitutional Appears: No Acute Distress - Head Exam Head Exam: ATRAUMATIC - Eye Exam Eye Exam: EOMI, PERRL - ENT Exam ENT Exam: Normal Oropharynx - Neck Exam Neck exam: Positive for: Full Rom - Respiratory Exam Respiratory Exam: Clear to Auscultation Bilateral, NORMAL BREATHING PATTERN - Cardiovascular Exam Cardiovascular Exam: RRR, +S1, +S2 - GI/Abdominal Exam GI & Abdominal Exam: Normal Bowel Sounds, Soft Additional comments: ND, mid lower abdominal region with small round opening where he had the boil draining minimal blood, decrease in erythema less discharge no tenderness - Extremities Exam Extremities exam: Positive for: normal inspection - Neurological Exam Neurological exam: Alert, Oriented x 3 Laboratory Results - last 72 hr 07/18/18 07/18/18 07/19/18 06:55 06:55 06:05 WBC 15.6 H RBC 5.00 Hgb 13.9 Hct 43.3 MCV 86.7 MCH 27.8 MCHC 32.1 L RDW 15.4 H Plt Count 338 MPV Neut % (Auto) Lymph % (Auto) Wilkes % (Auto) Eos % (Auto) Baso % (Auto) Neut # (Auto) Lymph # (Auto) Wilkes # (Auto) Eos # (Auto) Baso # (Auto) Sodium Potassium Chloride Carbon Dioxide Anion Gap BUN Creatinine Est GFR ( Amer) Est GFR (Non-Af Amer) Random Glucose Calcium Total Bilirubin AST ALT Alkaline Phosphatase Total Protein Albumin Globulin Albumin/Globulin Ratio Vancomycin Trough Absolute Lymphs (Flow) 1933 % CD4 Cells 5 L Absolute CD4 Count 105 L T-Help/Suppress Ratio 0.08 L % CD8 Cells 65 H Absolute CD8 Count 1255 H HIV-1 RNA Qnt (RT-PCR) <1.30 not detected 07/19/18 07/19/18 07/20/18 06:05 06:05 06:00 WBC 10.2 RBC 5.02 Hgb 14.1 Hct 42.9 MCV 85.6 MCH 28.1 MCHC 32.8 L RDW 15.4 H Plt Count 331 MPV 7.4 Neut % (Auto) 59.2 Lymph % (Auto) 30.3 Wilkes % (Auto) 7.1 Eos % (Auto) 2.5 Baso % (Auto) 0.9 Neut # (Auto) 6.0 Lymph # (Auto) 3.1 Wilkes # (Auto) 0.7 Eos # (Auto) 0.3 Baso # (Auto) 0.1 Sodium 141 Potassium 4.1 Chloride 109 H Carbon Dioxide 25 Anion Gap 11 BUN 15 Creatinine 1.3 Est GFR ( Amer) > 60 Est GFR (Non-Af Amer) 59 Random Glucose 102 Calcium 8.9 Total Bilirubin AST ALT Alkaline Phosphatase Total Protein Albumin Globulin Albumin/Globulin Ratio Vancomycin Trough 6.6 Absolute Lymphs (Flow) % CD4 Cells Absolute CD4 Count T-Help/Suppress Ratio % CD8 Cells Absolute CD8 Count HIV-1 RNA Qnt (RT-PCR) 07/21/18 07/21/18 07/21/18 03:30 03:30 03:30 WBC 10.2 RBC 5.07 Hgb 14.3 Hct 43.0 MCV 84.9 MCH 28.3 MCHC 33.3 RDW 15.5 H Plt Count 339 MPV Neut % (Auto) Lymph % (Auto) Wilkes % (Auto) Eos % (Auto) Baso % (Auto) Neut # (Auto) Lymph # (Auto) Wilkes # (Auto) Eos # (Auto) Baso # (Auto) Sodium 140 Potassium 3.5 L Chloride 110 H Carbon Dioxide 22 Anion Gap 12 BUN 12 Creatinine 1.0 Est GFR ( Amer) > 60 Est GFR (Non-Af Amer) > 60 Random Glucose 188 H Calcium 8.9 Total Bilirubin 0.3 AST 27 ALT 54 Alkaline Phosphatase 83 Total Protein 6.9 Albumin 3.5 Globulin 3.4 Albumin/Globulin Ratio 1.0 Vancomycin Trough 10.5 H Absolute Lymphs (Flow) % CD4 Cells Absolute CD4 Count T-Help/Suppress Ratio % CD8 Cells Absolute CD8 Count HIV-1 RNA Qnt (RT-PCR) Microbiology 07/17/18 21:06 Abdomen Gram Stain - Final 07/17/18 21:06 Abdomen Wound Culture - Final Methicillin Resistant S Aureus Assessment and Plan (1) Abdominal wall cellulitis Status: Acute (2) HIV (human immunodeficiency virus infection) Status: Acute - Assessment and Plan (Free Text) Assessment: Assessment and plan 48-year-old male with past medical history of HIV well-controlled who is admitted to hospital for evaluation of lower abdominal cellulitis after popping a small boil that was present there. Afebrile leukocytosis has resolved Wound cultureMRSA Plan continue with IV vanco day #4 keep trough <15. advise 2 more days of the vanco and then can be switched to bactrim DS BID for another 10 days as outpatient. Advised the patient to continue his home HIV medication ( Biktarvy). Patient verbalizes full understanding of all above and agrees with above plan of care.
--- NOTE | 2018-07-21 16:55 | CP.PCM.PN ---
Subjective - Date & Time of Evaluation Date of Evaluation: 07/21/18 Time of Evaluation: 15:00 - Subjective Subjective: F/U Cellulitis lower abdomen wall. Minimal tenderness suprapubic area Objective - Vital Signs/Intake and Output Vital Signs (last 24 hours): Temp Pulse Resp BP Pulse Ox 97.7 F 70 20 126/81 98 07/21/18 16:12 07/21/18 16:12 07/21/18 16:12 07/21/18 16:12 07/21/18 16:12 - Medications Medications: Current Medications Acetaminophen (Tylenol 325mg Tab) 650 mg PO Q4 PRN PRN Reason: Pain, Mild (1-3) Benzocaine/Menthol (Cepacol Sore Throat) 1 neha PO Q3 PRN PRN Reason: Sore Throat Home Med (Bictegrav/Emtricit/Tenofov Ala [Biktarvy 50-200-25 Mg Tablet]) 1 tab PO DAILY [facility] Last Admin: 07/21/18 09:36 Dose: 1 tab Vancomycin HCl 1,500 mg/ (Sodium Chloride) 500 mls @ 250 mls/hr IVPB Q12H JT; Protocol Last Admin: 07/21/18 15:11 Dose: 250 mls/hr Ketorolac Tromethamine (Toradol) 15 mg IVP Q6 PRN PRN Reason: Pain, moderate (4-7) Last Admin: 07/21/18 09:35 Dose: 15 mg Ketorolac Tromethamine (Toradol) 30 mg IVP Q6 PRN PRN Reason: Pain, severe (8-10) Last Admin: 07/20/18 17:43 Dose: 30 mg - Labs Labs: 07/21/18 03:30 07/21/18 03:30 - Constitutional Appears: No Acute Distress - Head Exam Head Exam: NORMAL INSPECTION - Eye Exam Eye Exam: PERRL - ENT Exam ENT Exam: Normal Exam - Neck Exam Neck Exam: Normal Inspection - Respiratory Exam Respiratory Exam: Decreased Breath Sounds - Cardiovascular Exam Cardiovascular Exam: REGULAR RHYTHM - GI/Abdominal Exam GI & Abdominal Exam: Soft, Tenderness (minimal suprapubic area), Normal Bowel Sounds Additional comments: Less drainage from lower abdomen wound area, redness in the area, dressing in pl kayli. - Extremities Exam Extremities Exam: Normal Inspection - Back Exam Back Exam: NORMAL INSPECTION - Neurological Exam Neurological Exam: Alert, Oriented x3. absent: Motor Sensory Deficit - Psychiatric Exam Psychiatric exam: Normal Mood - Skin Skin Exam: Warm Assessment and Plan (1) Abdominal wall cellulitis Status: Acute (2) HIV (human immunodeficiency virus infection) Status: Acute (3) Asthma Status: Chronic - Assessment and Plan (Free Text) Plan: Continue Vanco, Toradol and rest of Tx.
[2018-07-22] MEDS: Patient's Own Med (Bictegrav/Emtricit/Tenofov Ala [Biktarvy 50-200-25 Mg Tablet] 1 TAB) PO SCH (10:32)
--- NOTE | 2018-07-22 16:29 | CP.PCM.PN ---
Subjective - Date & Time of Evaluation Date of Evaluation: 07/22/18 Time of Evaluation: 13:00 - Subjective Subjective: F/U Cellulitis lower abdominal wall. no pain in suprapubic area of cellulitis Objective - Vital Signs/Intake and Output Vital Signs (last 24 hours): Temp Pulse Resp BP Pulse Ox 97.9 F 77 18 155/76 H 94 L 07/22/18 16:00 07/22/18 16:00 07/22/18 16:00 07/22/18 16:00 07/22/18 16:00 - Medications Medications: Current Medications Acetaminophen (Tylenol 325mg Tab) 650 mg PO Q4 PRN PRN Reason: Pain, Mild (1-3) Benzocaine/Menthol (Cepacol Sore Throat) 1 neha PO Q3 PRN PRN Reason: Sore Throat Home Med (Bictegrav/Emtricit/Tenofov Ala [Biktarvy 50-200-25 Mg Tablet]) 1 tab PO DAILY JT Last Admin: 07/22/18 10:32 Dose: 1 tab Vancomycin HCl 1,500 mg/ (Sodium Chloride) 500 mls @ 250 mls/hr IVPB Q12H JT; Protocol Last Admin: 07/22/18 15:57 Dose: 250 mls/hr Ketorolac Tromethamine (Toradol) 15 mg IVP Q6 PRN PRN Reason: Pain, moderate (4-7) Last Admin: 07/21/18 09:35 Dose: 15 mg Ketorolac Tromethamine (Toradol) 30 mg IVP Q6 PRN PRN Reason: Pain, severe (8-10) Last Admin: 07/20/18 17:43 Dose: 30 mg - Labs Labs: 07/21/18 03:30 07/21/18 03:30 - Constitutional Appears: No Acute Distress - Head Exam Head Exam: NORMAL INSPECTION - Eye Exam Eye Exam: PERRL - ENT Exam ENT Exam: Normal Exam - Neck Exam Neck Exam: Normal Inspection - Respiratory Exam Respiratory Exam: Decreased Breath Sounds - Cardiovascular Exam Cardiovascular Exam: REGULAR RHYTHM - GI/Abdominal Exam GI & Abdominal Exam: Soft, Normal Bowel Sounds Additional comments: minimal amount of drainage from wound in the lower abdomen and decreased redness around the area. - Extremities Exam Extremities Exam: Normal Inspection - Back Exam Back Exam: NORMAL INSPECTION - Neurological Exam Neurological Exam: Alert, Oriented x3. absent: Motor Sensory Deficit - Psychiatric Exam Psychiatric exam: Normal Mood - Skin Skin Exam: Erythema, Warm Assessment and Plan (1) Abdominal wall cellulitis Status: Acute (2) HIV (human immunodeficiency virus infection) Status: Acute (3) Asthma Status: Chronic - Assessment and Plan (Free Text) Plan: Vanco IV today, tomorrow begin Bactrim DS po
[2018-07-23] MEDS: Patient's Own Med (Bictegrav/Emtricit/Tenofov Ala [Biktarvy 50-200-25 Mg Tablet] 1 TAB) PO SCH (09:49)
[2018-07-23] MEDS ORDERED: Promethazine/Cod 6.25mg-10mg/5ml Syr UD PO PRN (12:13)
--- NOTE | 2018-07-23 12:35 | PQF ---
PROVIDER RESPONSE TEXT: Asymptomatic HIV/AIDS. REVIEWER QUERY TEXT: HIV Clarification and Associated Conditions HIV (Human immunodeficiency virus) is documented in the medical record. Please specify the TYPE as A symptomatic HIV/ HIV + only versus Symptomatic HIV/ AIDS. Lymphocyte subset and viral load is result ed. % CD4 cells 5 Absolute CD4 count 105 Absolute Lymphs flow 1933 T help/Suppress Ratio 0.08, % CD8 cells 65 Absolute CD8 count 1255 Viral load <1.30 Please specify the type Such as: -- Symptomatic HIV/ AIDS -- Asymptomatic HIV ? HIV + only -- Other, please specify Also please include any associated conditions, if applicable. The patient's Clinical Indicators include: ID note: Patient is a 48-year-old male with past medical history of HIV who is well controlled on antiretrovirals( Biktarvy) with undetectable viral load and he states his last CD4 was 450.He states he follows up with his doctor in [place]. Query created by: Jackelyn Sterling on 07/22/2018 7:52 AM Electronically signed by: Nito Reyes MD 07/23/2018 12:31 PM
[2018-07-23 16:31] VITALS: BP 124/74; PULSE 83; RESP 20; TEMP 98.1; O2SAT 95
--- NOTE | 2018-07-23 16:58 | CP.PCM.DIS ---
Provider - Provider Date of Admission: 07/17/18 22:11 Attending physician: Josh Longo MD Consults: 07/17/18 22:20 Infectious Disease Consult Stat Comment: Consulting Provider: Nito Reyes Consulting Physician: Nito Reyes Reason for Consult: cellulitis abdominal wall; H/O HIV Diagnosis - Discharge Diagnosis (1) Abdominal wall cellulitis Status: Acute (2) HIV (human immunodeficiency virus infection) Status: Acute (3) Asthma Status: Chronic Priority: Medium Hospital Course - Lab Results Lab Results: Micro Results 07/17/18 21:06 Abdomen Gram Stain - Final 07/17/18 21:06 Abdomen Wound Culture - Final Methicillin Resistant S Aureus Most Recent Lab Values WBC 10.2 K/uL (4.8-10.8) 07/21/18 03:30 RBC 5.07 Mil/uL (4.40-5.90) 07/21/18 03:30 Hgb 14.3 g/dL (12.0-18.0) 07/21/18 03:30 Hct 43.0 % (35.0-51.0) 07/21/18 03:30 MCV 84.9 fl (80.0-94.0) 07/21/18 03:30 MCH 28.3 pg (27.0-31.0) 07/21/18 03:30 MCHC 33.3 g/dL (33.0-37.0) 07/21/18 03:30 RDW 15.5 % (11.5-14.5) H 07/21/18 03:30 Plt Count 339 K/uL (130-400) 07/21/18 03:30 MPV 7.4 fl (7.2-11.7) 07/20/18 06:00 Neut % (Auto) 59.2 % (50.0-75.0) 07/20/18 06:00 Lymph % (Auto) 30.3 % (20.0-40.0) 07/20/18 06:00 Boyle % (Auto) 7.1 % (0.0-10.0) 07/20/18 06:00 Eos % (Auto) 2.5 % (0.0-4.0) 07/20/18 06:00 Baso % (Auto) 0.9 % (0.0-2.0) 07/20/18 06:00 Neut # (Auto) 6.0 K/uL (1.8-7.0) 07/20/18 06:00 Lymph # (Auto) 3.1 K/uL (1.0-4.3) 07/20/18 06:00 Boyle # (Auto) 0.7 K/uL (0.0-0.8) 07/20/18 06:00 Eos # (Auto) 0.3 K/uL (0.0-0.7) 07/20/18 06:00 Baso # (Auto) 0.1 K/uL (0.0-0.2) 07/20/18 06:00 Sodium 140 mmol/l (132-148) 07/21/18 03:30 Potassium 3.5 MMOL/L (3.6-5.0) L 07/21/18 03:30 Chloride 110 mmol/L (98-107) H 07/21/18 03:30 Carbon Dioxide 22 mmol/L (22-30) 07/21/18 03:30 Anion Gap 12 (10-20) 07/21/18 03:30 BUN 12 mg/dl (9-20) 07/21/18 03:30 Creatinine 1.0 mg/dl (0.8-1.5) 07/21/18 03:30 Est GFR ( Amer) > 60 07/21/18 03:30 Est GFR (Non-Af Amer) > 60 07/21/18 03:30 Random Glucose 188 mg/dL (75-110) H 07/21/18 03:30 Lactic Acid 1.2 mmol/L (0.7-2.1) 07/17/18 21:06 Calcium 8.9 mg/dL (8.4-10.2) 07/21/18 03:30 Total Bilirubin 0.3 mg/dl (0.2-1.3) 07/21/18 03:30 AST 27 U/L (17-59) 07/21/18 03:30 ALT 54 U/L (21-72) 07/21/18 03:30 Alkaline Phosphatase 83 U/L (38-126) 07/21/18 03:30 Troponin I < 0.0120 ng/mL (0.00-0.120) 07/17/18 21:06 NT-Pro-B Natriuret Pep 30.0 pg/ml (0-450) 07/17/18 21:06 Total Protein 6.9 G/DL (6.3-8.2) 07/21/18 03:30 Albumin 3.5 g/dL (3.5-5.0) 07/21/18 03:30 Globulin 3.4 gm/dL (2.2-3.9) 07/21/18 03:30 Albumin/Globulin Ratio 1.0 (1.0-2.1) 07/21/18 03:30 Triglycerides 95 mg/DL (0-149) 07/18/18 06:55 Cholesterol 182 mg/dL (0-199) 07/18/18 06:55 LDL Cholesterol Direct 115 mg/dL (0-129) 07/18/18 06:55 HDL Cholesterol 25 MG/DL (30-70) L 07/18/18 06:55 Thyroxine (T4) 8.68 ug/dl (5.5-11.0) 07/18/18 06:55 TSH 3rd Generation 1.24 mIU/ML (0.46-4.68) 07/18/18 06:55 Vancomycin Trough 10.5 ug/mL (5.0-10.0) H 07/21/18 03:30 Absolute Lymphs (Flow) 1933 Cells/mcL (850-3900) 07/18/18 06:55 % CD4 Cells 5 Percent (30-61) L 07/18/18 06:55 Absolute CD4 Count 105 Cells/mcL (490-1740) L 07/18/18 06:55 T-Help/Suppress Ratio 0.08 Ratio (0.86-5.00) L 07/18/18 06:55 % CD8 Cells 65 Percent (12-42) H 07/18/18 06:55 Absolute CD8 Count 1255 Cells/mcL (180-1170) H 07/18/18 06:55 HIV-1 RNA Qnt (RT-PCR) <1.30 not detected (Not Detected) 07/18/18 06:55 Discharge Exam - Head Exam Head Exam: NORMAL INSPECTION Discharge Plan - Discharge Medications Prescriptions: Sulfamethoxazole/Trimethoprim [Bactrim DS 800 mg-160 mg] 1 tab PO BID #20 tab - Follow Up Plan Condition: FAIR Disposition: HOME/ ROUTINE Instructions: Wound Care (DC), Cellulitis (Skin Infection), Adult (DC) Additional Instructions: follow up with primary MD 1 week Referrals: Nito Reyes MD [Staff Provider] - Josh Longo MD [Staff Provider] -
--- NOTE | 2018-07-24 14:28 | PQF ---
PROVIDER RESPONSE TEXT: AIDS REVIEWER QUERY TEXT: HIV Clarification and Associated Conditions HIV (Human immunodeficiency virus) is documented in the medical record. Please specify the type Such as: -- Symptomatic HIV/ AIDS -- Asymptomatic HIV/ HIV +only -- Other, please specify The patient's Clinical Indicators include: Viral load and CD4/CD8 pending. ID note: Patient is a 48-year-old male with past medical history of HIV who is well controlled on antiretrovirals( Biktarvy) with undetectable viral load and he states his last CD4 was 450.He states he follows up with his doctor in [place]. Query created by: Jackelyn Sterling on 07/19/2018 9:06 AM Electronically signed by: Josh Longo MD 07/24/2018 2:24 PM
== END 2018-07-23 16:30 | disposition home or self-care (01) | DRG 714 ==
LOC: H.ER 18:29 → H.ERHOLD 22:11 → H.MEDSURG1 07-18 00:30
PROVIDERS: ADMIT Internal Medicine Pulmonary Disease; ATTEND Internal Medicine Pulmonary Disease
DX: L03.311 Cellulitis of abdominal wall (principal); B20 Human immunodeficiency virus [HIV] disease; J45.909 Unspecified asthma, uncomplicated; B95.62 Methicillin resistant Staphylococcus aureus infection as the cause of diseases classified elsewhere; F17.210 Nicotine dependence, cigarettes, uncomplicated; Z88.0 Allergy status to penicillin

== ENCOUNTER 2018-08-29 11:18 | Emergency (ER) | payer MEDICAID ==
[2018-08-29 12:11] VITALS: BP 137/78; PULSE 67; RESP 17; TEMP 98.4; O2SAT 98
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
--- NOTE | 2018-08-29 14:35 | RAD ---
Date of service: 08/29/2018 PROCEDURE: Left Foot Radiographs. HISTORY: pain to plantar aspect of 4th/5th metatarsal COMPARISON: None. TECHNIQUE: 3 views obtained. FINDINGS: BONES: Oblique, angulated fracture distal aspect of the left 4th metatarsal. The finding is marked on the study for review. JOINTS: Normal. SOFT TISSUES: Soft tissue swelling attests to the acuity of the fracture. OTHER FINDINGS: None. IMPRESSION: Acute non articular fracture distal left 4th metatarsal.
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
== END 2018-08-29 16:23 | disposition home or self-care (01) ==
LOC: H.ER 11:18
DX: S92.341A Displaced fracture of fourth metatarsal bone, right foot, initial encounter for closed fracture (principal); X58.XXXA Exposure to other specified factors, initial encounter; Y92.89 Other specified places as the place of occurrence of the external cause; B20 Human immunodeficiency virus [HIV] disease; Z88.0 Allergy status to penicillin
CPT/HCPCS: 29515; 73630; 96372; 99283; J1885